=== PATIENT | male | born 1990 | race Caucasian/White ===

== ENCOUNTER 2020-01-23 14:27 | Emergency (ER) | payer OTHER, SELFPAY ==
[2020-01-23 14:38] VITALS: BP 182/89; PULSE 110; RESP 16; TEMP 36.8; O2SAT 100
--- NOTE | 2020-01-23 14:47 | ED.SKABFB ---
HPI - Skin/Abscess/Foreign Bdy General Chief complaint: Skin/Abscess/Foreign Body Stated complaint: armpits swollen History of Present Illness HPI narrative: This is a 29 year old for the past few days he had these things that has developed under his bilateral axilla area and it is painful and hurts when he moves his arms. Patient denies any fever, sore throat , smoking, dizziness or rash Related Data Allergies Allergy/AdvReac Type Severity Reaction Status Date / Time No Known Drug Allergies Allergy Unknown Unknown Verified 01/23/20 14:47 Review of Systems Review of Systems: Narrative: CONSTITUTIONAL: Denies fever, chills, or sweats. EYES: Denies visual changes, redness, or discharge. ENT: Denies rhinorrhea, congestion, sore throat, or otalgia. CARDIOVASCULAR:Denies chest pain, palpitations, or edema. RESPIRATORY: Denies cough or dyspnea. GASTROINTESTINAL: Denies abdominal pain, nausea, vomiting, or diarrhea. GENITOURINARY: Denies dysuria or hematuria. SKIN:[Denies rash or itching. MUSCULOSKELETAL:Denies back pain, joint pain, or myalgia. bilateral axilla swollen area that is painful NEUROLOGIC: Denies headache, numbness, or weakness. PSYCHIATRIC:Denies anxiety or depression PMFSH Comments At time as signature, I have reviewed and agree with nursing past medical, social, surgical and family history. Please see nursing chart for further information. There is no relevant family history pertinent to the presenting complaint. Exam Narrative: Exam Narrative: GENERAL:Well-appearing, well-nourished, and in no acute distress. HEAD:Normocephalic, atraumatic. EYES: PERRLA and EOMI. ENT: Nares clear, no rhinorrhea or epistaxis. Mucous membranes moist. NECK: Supple. CHEST: Clear to auscultation. No respiratory distress. HEART: Regular rate and rhythm. No murmur heard. Normal peripheral pulses. ABDOMEN: Soft, nontender, nondistended, normal active bowel sounds. EXTREMITIES: decreased arm movement range of motion due to pain. bilateral edema to axilla area with small swollen areas that feels like moveable soft nodule that I am able to palpate between my fingers but are painful to touch with erythema to both areas right larger than the left. SKIN: Warm, dry, no rash. NEURO: No focal deficits. Alert and oriented x3. Patient denies diabetes , STD not that he knows of Strep is negative, [facility] negative Urine does not look bad will send of GC/Chly testing and will prophylactically treat. Course Course Emergency Course: patient is aware of diagnosis, understands and agrees to treatment plan. Anticipatory guidance given. Patient agrees to follow-up as directed and is aware of reasons to seek care at the emergency department. Vital Signs Vital signs: Vital Signs Temperature 98.3 F 01/23/20 14:38 Pulse Rate 110 H 01/23/20 14:38 Respiratory Rate 16 01/23/20 14:38 Blood Pressure 182/89 H 01/23/20 14:38 Pulse Oximetry 100 01/23/20 14:38 Temperature 98.3 F 01/23/20 14:38 Pulse Rate 110 H 01/23/20 14:38 Respiratory Rate 16 01/23/20 14:38 Blood Pressure 182/89 H 01/23/20 14:38 Pulse Oximetry 100 01/23/20 14:38 MDM - Skin/Abscess/Foreign Bdy Lab Data Labs: Strep Screen Presumptive Negative *(Reference Range: Negative)* [facility] Screen Negative (Reference Range: Negative) Urine Glucose Negative Reference Range: Negative Urine Bilirubin 1+ Reference Range: Negative Urine Ketone Negative Reference Range: Negative Urine Specific [place] 1.025 Reference Range:1.001-1.035 Urine Blood Negative Reference Range: Negative * * Urine pH 6.5 Reference Range: 5.0-9.0 Urine Protein 1+ Reference Range: Negative Urine Urobili
[2020-01-23] MEDS: cefTRIAXone 250 MG VIAL IM (15:31)
[2020-01-23] MEDS: LIDOCAINE HCL 1% LOCAL INJ 20 ML VIAL INFILTRATE (15:32)
== END 2020-01-23 15:55 | disposition home or self-care (01) ==
PROVIDERS: Emergency Provider Nurse Practitioner Family
DX: R59.1 Generalized enlarged lymph nodes (principal); L02.411 Cutaneous abscess of right axilla; I10 Essential (primary) hypertension
CPT/HCPCS: 81003; 86308; 87081; 87491; 87591; 87661; 87880; 96372; 99213; G0463; J0696

== ENCOUNTER 2025-08-10 18:37 | Emergency (ER) | payer OTHER, SELFPAY ==
--- OUTSIDE RECORDS SUMMARY | 2025-08-10 18:39 | XMS_ITS | Clinical Summary ---
Author Organization [facility] Address [address] [place] [address] Care Team Providers Care Wellhead Pumper Name Role Phone Manuel Putnam MD Primary Care Provider [phone] Source Comments [facility],non-owned Affiliates and Associated Physician Practices is amultiple site organization consisting of ambulatory clinics and hospital sitesin [place], [place], [place] and [place]. This disclosure is being madepursuant to the Care Everywhere program and may not contain all information available regarding this patient. Last updated 18.[facility] Allergies No known active allergies Medications * Be aware that medications may not be up to date on this document. Alwaysverify current medications with the patient. methylPREDNISol one (MEDROL DOSEPAK) 4 MG tabletIndicatio ns:Poison mary kate Take by mouth as directed 1 Each 03/29/2017 Active Social History Tobacco Use Types Packs/Day Years Used Date Smoking Tobacco: Never Assessed Sex and Gender Information Value Date Recorded Sex Assigned at Not on file Legal Sex Male 1:38 PM CDT Gender Identity Not on file Sexual Orientation Not on file Last Filed Vital Signs Vital Sign Reading Time Taken Comments Blood Pressure 138/78 03/27/2017 2:37 PM CDT Pulse 104 03/27/2017 2:37 PM CDT Temperature 36.6 C (97.9 F) 03/27/2017 2:37 PM CDT Respiratory Rate 18 03/27/2017 2:37 PM CDT Oxygen Saturation 95% 03/27/2017 2:37 PM CDT Inhaled Oxygen Concentration - - Weight 113.4 kg (250 lb) 03/27/2017 2:37 PM CDT Height 200.7 cm (6' 7) 03/27/2017 2:37 PM CDT Body Mass Index 28.16 03/27/2017 2:37 PM CDT Plan of Treatment Health Maintenance Due Date Last Done Comments HIV SCREENING 2005 HEPATITIS C SCREENING 10/05/2008 DTAP/TDAP/TD VACCINES (1 - Tdap) 2009 HEPATITIS B VACCINE (1 of 3 - 19+ 3-dose series) 2009 HPV VACCINE (1 - 3-dose SCDM series) 2017 DEPRESSION SCREENING 10/02/2024 COVID-19 VACCINE (1 - 2023-2 5 season) 2025 INFLUENZA VACCINE (#1) 2025 ZOSTER VACCINE (1 of 2) 2040 HIB VACCINE Aged Out No longer eligi ble based on patient's age to complete this topic MENINGOCOCCAL (Group B) VACC INE SHARED DECISION-MAKING Aged Out No longer eligibl e based on patient's age to complete this topic MENINGOCOCCAL GROUPS A/C/Y/W VACCINE Aged Out No longer eligible b ased on patient's age to complete this topic PNEUMOCOCCAL VACCINE Aged Out No long er eligible based on patient's age to complete this topic Care Teams Wellhead Pumper Relationship Specialty Start Date End Date Manuel Putnam MD PCP - General Internal Medicine 03/27/17
[2025-08-10 18:47] VITALS: BP 190/128; PULSE 111; RESP 18; TEMP 36.6; O2SAT 100
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
[2025-08-10] MEDS: TETANUS,DIPHTHERIA,AC PERTUSSIS ADULT (0.5 ML) BOOSTRIX IM (19:47)
== END 2025-08-10 20:10 ==
LOC: ANHED 19:58
PROVIDERS: Emergency Provider Student in an Organized Health Care Education/Training Program
DX: S61.411A Laceration without foreign body of right hand, initial encounter (principal); Y35.93XA Legal intervention, means unspecified, suspect injured, initial encounter; Z23 Encounter for immunization
CPT/HCPCS: 12001; 90471; 90715; 99282